=== PATIENT | female | born 1965 | race Caucasian/White ===

== ENCOUNTER 2016-04-25 13:35 | Emergency (ER) | payer BC ==
[~2016-04-25] VITALS: Ht 172.7 cm; Wt 91.0 kg
[2016-04-25 13:46] VITALS: TEMP 36.9; Ht 172.7 cm; Wt 91.0 kg
[2016-04-25] MEDS ORDERED: DiphenhydrAMINE HCL 50 MG/ML VIAL IV STA (14:17)
[2016-04-25] MEDS ORDERED: SODIUM CHLORIDE 0.9% 1000ML 2,000 ML IV STA (14:17)
[2016-04-25] MEDS ORDERED: PROCHLORPERAZINE 5 MG/ML 2 ML VIAL IV STA (14:17)
--- NOTE | 2016-04-25 14:31 | EMERGENCY ROOM VISIT NOTE ---
History Report prepared by Jakob: Michael Lyons Under the Supervision of: Dr. Chano Meyers M.D. First contact with patient: 14:14 Chief Complaint: DEHYDRATION Stated Complaint: LIKELY DEHYDRATION AFTER GI ILLNESS FRI Nursing Triage Summary: Triage Note: Pt reports since nausea, vomitting, diarrhea. pt reports headache. History of Present Illness The patient is a 50 year old female who presents to the Emergency Room with complaints of constant dehydration beginning two days prior to arrival. She currently rates her discomfort as a 7/10 in severity. The patient associates a headache, diarrhea, neck stiffness, and decreased appetite with today's symptoms. She states she had the stomach bug three days ago with nausea, vomiting, and diarrhea. The patient notes the nausea and vomiting resolved but the diarrhea has persisted. She states she has not been eating or drinking well the past few days. The patient notes she has a history of migraines, but her medication did not relieve her headache. She states this headache feels different than her typical migraines. The patient notes she takes medication for her blood pressure, as well. Pt denies LOC, fevers, chills, diaphoresis, visual changes, chest pain, breathing difficulties, nausea, vomiting, abdominal pain, back pain, melena, hematochezia, urinary symptoms, numbness, weakness, lymphadenopathy, rash, or other complaints. 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 Review of Systems See HPI for pertinent positives and negatives. A total of ten systems were reviewed and were otherwise negative. Past Medical & Surgical Medical Problems: (1) Bronchitis (2) Hypertension (3) Pneumonia Surgical Problems: (1) S/P section Family History Cancer Diabetes mellitus Gallbladder disease Heart disease Hypertension Social History Smoking Status: Never Smoker Alcohol Use: occasionally Marital Status: Housing Status: lives with family Occupation Status: retired Current/Historical Medications Scheduled Escitalopram Oxalate (Lexapro), 5 MG PO DAILY Ranitidine (Zantac), 1 TAB PO BID Sumatriptan Succinate (Imitrex), 50 MG PO PRN Miscellaneous Medications Ascorbic Acid (Vitamin C Cr) Lisinopril (Prinivil), 5 MG PO Magnesium Oxide (Magnesium Oxide) Naproxen (Aleve), 220 MG PO Topiramate (Topiramate) Allergies Coded Allergies: BEE STING (Verified Allergy, Unknown, 04/25/16) Physical Exam Vital Signs Date Time Temp Pulse Resp B/P Pulse Ox O2 Delivery O2 Flow Rate FiO2 04/25/16 19:13 57 18 133/87 99 Room Air 04/25/16 18:11 76 17 126/80 98 Room Air 04/25/16 15:39 49 16 125/76 99 Room Air 04/25/16 13:46 36.9 82 18 139/99 97 Room Air Physical Exam GENERAL: Awake, alert, tired-appearing, no distress HENT: Normocephalic, atraumatic. Dry mucous membranes. EYES: PERRL. EOMI. Normal conjunctiva. Sclera non-icteric. NECK: Supple. No nuchal rigidity. FROM. No JVD or bruit. RESPIRATORY: CTA CARDIAC: RRR. No murmur. ABDOMEN: Soft, non distended. No tenderness to palpation. No rebound or guarding. No masses. RECTAL: Deferred. MUSCULOSKELETAL: Unremarkable. No edema. No discoloration. Gross motor strength symmetric. NEURO: Cranial nerves 2-12 grossly intact. Normal sensorium. No sensory or motor deficits noted. Speech normal. No pronator drift. SKIN: Mild tenting. No rash or jaundice noted. LYMPH: No adenopathy. Medical Decision & Procedures ER Provider Diagnostic Interpretation: CT: Radiology results as stated below per my review and radiologist interpretation CT SCAN OF THE BRAIN WITHOUT IV CONTRAST CLINICAL HISTORY: Headache. COMPARISON STUDY: MRI of the brain dated 05/29/2008. TECHNIQUE: Unenhanced axial CT scan of the brain is performed from the vertex to the skull base. Automated dose control exposure was utilized. CT DOSE: 537.48 mGy.cm FINDINGS: Brain parenchyma: The brain parenchyma is normal in appearance. There is no hemorrhage, mass effect, or evidence of acute territorial ischemia by CT criteria. Mcdonald-white matter is preserved. No extra-axial fluid collection is seen. Ventricles, sulci, cisterns: Normal in configuration. Intracranial vasculature: The visualized intracranial vasculature at the skull base is normal in appearance. Calvarium: Unremarkable. Sinuses and mastoids: The visualized paranasal sinuses are clear. The mastoid air cells are well pneumatized. Orbits: The bony orbits are grossly intact. IMPRESSION: No acute intracranial abnormality. Electronically signed by: Sanjay Martinez M.D. 04/25/2016 5:34 PM Laboratory Results 04/25/16 14:45 Red Blood Count 4.72, Mean Corpuscular Volume 89.0, Mean Corpuscular Hemoglobin 30.5, Mean Corpuscular Hemoglobin Concent 34.3, Mean Platelet Volume 9.9, Neutrophils (%) (Auto) 56.5, Lymphocytes (%) (Auto) 31.1, Monocytes (%) (Auto) 11.5, Eosinophils (%) (Auto) 0.7, Basophils (%) (Auto) 0.2, Neutrophils # (Auto ) 2.51, Lymphocytes # (Auto) 1.38, Monocytes # (Auto) 0.51, Eosinophils # (Auto ) 0.03, Basophils # (Auto) 0.01 04/25/16 14:45 Test 04/25/16 14:45 White Blood Count 4.44 K/uL (4.8-10.8) Red Blood Count 4.72 M/uL (4.2-5.4) Hemoglobin 14.4 g/dL (12.0-16.0) Hematocrit 42.0 % (37-47) Mean Corpuscular Volume 89.0 fL (80-100) Mean Corpuscular Hemoglobin 30.5 pg (25-34) Mean Corpuscular Hemoglobin Concent 34.3 g/dl (32-36) Platelet Count 246 K/uL (130-400) Mean Platelet Volume 9.9 fL (7.4-10.4) Neutrophils (%) (Auto) 56.5 % Lymphocytes (%) (Auto) 31.1 % Monocytes (%) (Auto) 11.5 % Eosinophils (%) (Auto) 0.7 % Basophils (%) (Auto) 0.2 % Neutrophils # (Auto) 2.51 K/uL (1.4-6.5) Lymphocytes # (Auto) 1.38 K/uL (1.2-3.4) Monocytes # (Auto) 0.51 K/uL (0.11-0.59) Eosinophils # (Auto) 0.03 K/uL (0-0.5) Basophils # (Auto) 0.01 K/uL (0-0.2) RDW Standard Deviation 42.4 fL (36.4-46.3) RDW Coefficient of Variation 13.0 % (11.5-14.5) Immature Granulocyte % (Auto) 0.0 % Immature Granulocyte # (Auto) 0.00 K/uL (0.00-0.02) Urine Color YELLOW Urine Appearance CLEAR (CLEAR) Urine pH 7.0 (4.5-7.5) Urine Specific [place] 1.016 (1.000-1.030) Urine Protein NEG (NEG) Urine Glucose (UA) NEG (NEG) Urine Ketones NEG (NEG) Urine Occult Blood NEG (NEG) Urine Nitrite NEG (NEG) Urine Bilirubin NEG (NEG) Urine Urobilinogen NEG (NEG) Urine Leukocyte Esterase NEG (NEG) Urine Test NEG (NEG) Anion Gap 10.0 mmol/L (3-11) Est Creatinine Clear Calc Drug Dose 98.0 ml/min Estimated GFR () 98.2 Estimated GFR (Non- 84.7 BUN/Creatinine Ratio 18.5 (10-20) Calcium Level 8.2 mg/dl (8.5-10.1) Magnesium Level 2.1 mg/dl (1.8-2.4) Total Bilirubin 0.3 mg/dl (0.2-1) Direct Bilirubin < 0.1 mg/dl (0-0.2) Aspartate Amino Transf (AST/SGOT) 31 U/L (15-37) Alanine Aminotransferase (ALT/SGPT) 37 U/L (12-78) Alkaline Phosphatase 79 U/L (45-117) Total Protein 7.2 gm/dl (6.4-8.2) Albumin 3.6 gm/dl (3.4-5.0) Lipase 158 U/L (73-393) Laboratory results reviewed by me Medications Administered Medications (Trade) Dose Ordered Sig/Juan Manuel Route Start Time Stop Time Status Last Admin Dose Admin Sodium Chloride (Nss 1000ml) 2,000 ml @ 999 mls/hr Q2H1M STAT IV 04/25/16 14:17 04/25/16 16:17 DC 04/25/16 14:44 999 MLS/HR Prochlorperazine Edisylate (Compazine Inj) 10 mg NOW STAT IV 04/25/16 14:17 04/25/16 14:21 DC 04/25/16 14:44 10 MG Diphenhydramine HCl (Benadryl Inj) 12.5 mg NOW STAT IV 04/25/16 14:17 04/25/16 14:21 DC 04/25/16 14:44 12.5 MG Ketorolac Tromethamine (Toradol Inj) 30 mg NOW STAT IV 04/25/16 15:26 04/25/16 15:28 DC 04/25/16 15:37 30 MG ED Course 1415: The patient was evaluated in room A4B. A complete history and physical exam was performed. 1417: Ordered Benadryl Inj 12.5 mg IV, Compazine Inj 10 mg IV, Sodium Chloride 2 ,000 ml @ 999 mls/hr IV. 1526: Ordered Toradol Inj 30 mg IV. 1528: Reevaluated the patient at this time, and she is feeling a little better. However, she has only received a quarter of her fluid currently. 1700: Reevaluated the patient at this time, and her headache is basically gone. She notes she still has some discomfort, when she is moving her head around. 1818: Reevaluated the patient at this time, and she is feeling better. The patient is getting oral fluids. 1908: I reevaluated the patient, and she is feeling much better. She would like to go home. Discussed results and discharge instructions: She verbalized understanding and agreement. The patient is ready for discharge. Medical Decision Triage Nursing notes reviewed. The patient's presentation and history were concerning for nausea, vomiting, diarrhea, and headache. Etiologies such as gastroenteritis, food borne illness, infections, obstruction , pancreatitis, appendicitis, diverticulitis, inflammatory bowel disease, GI bleed, biliary pathology, toxicologic, dehydration, meningitis, sinusitis, migraine headache, as well as others were entertained. The patient was evaluated. She had some mild dry mucous membranes and tenting of the skin. She notes very poor oral intake over the last few days since her vomiting and diarrhea started. She had an IV established. She had blood work obtained. She was given 2 L of normal saline, Compazine, and Benadryl. She was feeling somewhat better with this but noted her headache was still bothering her. She was given IV Toradol. The patient had an unremarkable CBC except for mild leukopenia which would support a viral syndrome. Patient had a negative chemistry panel, magnesium level, LFTs, lipase and urinalysis. On reassessment the patient was doing well. She noted some fullness in her frontal sinuses as well as concerned that this may be causing her headache. Her headache was resolved unless she would move around and then it was only minimal. CT imaging did not reveal any significant abnormalities. On reassessment she was doing well. She was given oral fluids and crackers. She was able to keep this down. She noted that her anorexia had resolved. The patient has a long history of migraine headaches although did not this did feel somewhat different. I suspect she developed the vomiting and diarrhea and then that triggered this headache-like syndrome. She does not have any meningeal findings, leukocytosis, or fever. Negative jolt accentuation. I discussed conservative management with the patient. I did ask her to return if she worsens in any way. By the evaluation outlined above other emergent etiologies such as those listed in the differential, as well as others, were deemed relatively unlikely. The patient was informed about the findings as listed above. All questions were answered and she was pleased with the treatment. Return instructions were outlined and the patient was discharged in stable condition. The patient was referred to her PCP for follow-up this week for a recheck of the current condition. The chart was completed utilizing [employer] Speech voice recognition software. Grammatical errors, random word insertions, pronoun errors, and incomplete sentences are an occasional consequence of this system due to software limitations, ambient noise, and hardware issues. Any formal questions or concerns about the content, text, or information contained within the body of this dictation should be directly addressed to the physician for clarification. Impression Primary Impression: Nausea Additional Impressions: Headache, Dehydration Scribe Attestation The scribe's documentation has been prepared under my direction and personally reviewed by me in its entirety. I confirm that the note above accurately reflects all work, treatment, procedures, and medical decision making performed by me. Departure Information Dispostion Home / Self-Care Referrals Linda Casillas D.O. (PCP) Forms HOME CARE DOCUMENTATION FORM, IMPORTANT VISIT INFORMATION, WORK / SCHOOL INSTRUCTIONS Patient Instructions A Signature Page, [facility] Additional Instructions DO NOT drive, drink alcohol, operate machinery, or perform dangerous activities today. You were given medications in the ER that can affect your ability to safely function or operate a vehicle. Rest today in a quiet, peaceful, dark environment and get a full 8-10 hrs of sleep tonight. Avoid loud noises, smoke/smoking, alcohol, bright lights, stress, or physical exertion today to minimize the chance the headache may return. Continue current medications. Use the Zofran as needed for nausea. Acetaminophen(Tylenol) may be used for fever or pain. Use 1000mg every six hours as needed. Avoid using more than 4000mg in a 24 hour period. Return to the ER for passing out, worsening or persistent headache, vision problems, neck stiffness/pain, fevers, vomiting, worsening of your condition, or as needed. Follow up with your primary physician in one to 2 days for a recheck of your current condition.
[2016-04-25] MEDS ORDERED: LISI-729 PO (14:53)
[2016-04-25] MEDS ORDERED: SUMA50TA15 PO (14:53)
[2016-04-25] MEDS ORDERED: TOPI15CA7 (14:53)
[2016-04-25] MEDS ORDERED: NAPR1TAB9 PO (14:53)
[2016-04-25] MEDS ORDERED: ASCO500C4 PO (14:53)
[2016-04-25] MEDS ORDERED: ESCI1TAB6 PO (14:53)
[2016-04-25] MEDS ORDERED: MAGN250T12 PO (14:53)
[2016-04-25] MEDS ORDERED: ZNTT/150 PO (14:53)
[2016-04-25 14:57] LABS: BASO % 0.2 %; BASO ABS # 0.01 K/uL (0-0.2); COMPLETE YES; EOS % 0.7 %; LYMPH % 31.1 %; LYMPH ABS # 1.38 K/uL (1.2-3.4); MEAN CORPUSCULAR HEMOGLOBIN 30.5 pg (25-34); MEAN CORPUSCULAR HGB CONC 34.3 g/dl (32-36); MEAN PLATELET VOLUME 9.9 fL (7.4-10.4); MONO % 11.5 %; NEUT % 56.5 %; PLATELET COUNT 246 K/uL (130-400); RED BLOOD COUNT 4.72 M/uL (4.2-5.4); WHITE BLOOD COUNT 4.44 K/uL (4.8-10.8)
[2016-04-25 15:07] LABS: URINE APPEARANCE CLEAR (CLEAR); URINE BILIRUBIN NEG (NEG); URINE COLOR YELLOW; URINE NITRITE NEG (NEG); URINE SPECIFIC GRAVITY 1.016 (1.000-1.030); UROBILINOGEN NEG (NEG)
[2016-04-25 15:11] LABS: MANUAL MICROSCOPIC REQUIRED? NO; REVIEW REQ? NO
[2016-04-25 15:15] LABS: ALT/SGPT 37 U/L (12-78); AST/SGOT 31 U/L (15-37); BLOOD UREA NITROGEN 15 mg/dl (7-18); BUN/CREATININE RATIO 18.5 (10-20); CALCIUM 8.2 mg/dl (8.5-10.1); CARBON DIOXIDE 25 mmol/L (21-32); CHLORIDE 106 mmol/L (98-107); CREATININE 0.81 mg/dl (0.60-1.20); GLUCOSE 95 mg/dl (70-99); MAGNESIUM 2.1 mg/dl (1.8-2.4); POTASSIUM 3.4 mmol/L (3.5-5.1); SODIUM 141 mmol/L (136-145)
[2016-04-25 15:16] LABS: ALKALINE PHOSPHATASE 79 U/L (45-117)
[2016-04-25] MEDS ORDERED: KETOROLAC TROMETHAMINE 30 MG/ML VIAL IV STA (15:26)
--- NOTE | 2016-04-25 17:36 | DIAGNOSTIC IMAGING REPORT ---
CT SCAN OF THE BRAIN WITHOUT IV CONTRAST CLINICAL HISTORY: Headache. COMPARISON STUDY: MRI of the brain dated 05/29/2008. TECHNIQUE: Unenhanced axial CT scan of the brain is performed from the vertex to the skull base. Automated dose control exposure was utilized. CT DOSE: 537.48 mGy.cm FINDINGS: Brain parenchyma: The brain parenchyma is normal in appearance. There is no hemorrhage, mass effect, or evidence of acute territorial ischemia by CT criteria. Mcdonald-white matter is preserved. No extra-axial fluid collection is seen. Ventricles, sulci, cisterns: Normal in configuration. Intracranial vasculature: The visualized intracranial vasculature at the skull base is normal in appearance. Calvarium: Unremarkable. Sinuses and mastoids: The visualized paranasal sinuses are clear. The mastoid air cells are well pneumatized. Orbits: The bony orbits are grossly intact. IMPRESSION: No acute intracranial abnormality. Electronically signed by: Sanjay Martinez M.D. 04/25/2016 5:34 PM
[2016-04-25 19:13] VITALS: BP 133/87; PULSE 57; O2SAT 99
[2016-06-15] MEDS ORDERED: FLUC150T54 PO (00:49)
== END 2016-04-25 19:18 | disposition home or self-care (01) ==
LOC: C.EDB 13:38 → C.EDA 19:18
DX: R11.0 Nausea (principal); R51 Headache; E86.0 Dehydration; I10 Essential (primary) hypertension; Z80.9 Family history of malignant neoplasm, unspecified; Z83.3 Family history of diabetes mellitus; Z82.49 Family history of ischemic heart disease and other diseases of the circulatory system; Z79.899 Other long term (current) drug therapy

== ENCOUNTER 2016-06-14 12:29 | Emergency (ER) | payer BC ==
[~2016-06-14] VITALS: Ht 172.7 cm; Wt 94.3 kg
[~2016-06-14 12:29] MED LIST changes: -ESCI1TAB10 PO; -FLUC150T54 PO; -IPRASOL4 INH; -LEVO1TAB33 PO; -METH4PAK PO; -MISCCAP80 PO; -TOPI25TA99 PO
[2016-06-14 12:31] VITALS: TEMP 36.6; Ht 172.7 cm; Wt 94.3 kg
[2016-06-14] MEDS ORDERED: ALBUT/IPRATROP 3MG/0.5MG NEB 3 ML VIAL INH STA (13:18)
[2016-06-14] MEDS ORDERED: METHYLPREDNISOLONE 125 MG VIAL IV STA (13:18)
--- NOTE | 2016-06-14 13:27 | EMERGENCY ROOM VISIT NOTE ---
History First contact with patient: 13:08 Chief Complaint: COUGH Stated Complaint: WHEEZING, WAITING ON CXR Nursing Triage Summary: Pt states she needs a neb treatment, has been taking them at home 4 x a day for 2 weeks and they're not working. States she had an xray done today. Has been on 4 antibiotics and prednisone is getting worse. Cough, productive. History of Present Illness The patient is a 50 year old female who presents to the Emergency Room via private vehicle with complaints of "wheezing, waiting on chest x-ray"The patient states that she began with a broken tooth in a root canal on May 09 given a Z-Emmett at that time. She notes that 2 weeks later she went to see an neonatal doctor who deconstruct the tooth because it was in bad repair and states that she was prescribed amoxicillin. She states that she then developed an infection in the head and chest and then went to be [facility] clinic and was prescribed a nebulizer treatment Augmentin. She has been doing a nebulizer 3-4 times daily. She also has been using Nasonex and Mucinex. She notes at the infection seems be out of the head but is now settled in her chest. She was to nebulizers at home for half an hour and feels good and then develops rales and wheezing in the chest. She notes that this past Tuesday she went to her family doctor negative for Levaquin and a prescription for 6 days of prednisone as he is typically work for her. She notes that she finished prednisone yesterday and more often as Levaquin. She notes that she's been sleeping a lot and has been wheezing quite a bit. She went to call her family doctor today who was not in and the doctor that office told her to go get a chest x-ray which didn't 11 AM and pulse. And then was sent here because it was a 2 hour weight at the [facility]. She also states that she decided to come in here because she wanted to breathe. She notes she is not used nebulizer prednisone today. She does have a history of pneumonia. She is unsure if she's had fevers or chills. She denies any chest pain but notes tightness. She denies a history of asthma. She's never had this before. She notes her sputum is productive with green and yellow sputum. She also notes vaginal discharge that she has had before when she takes multiple antibiotics and usually gets Diflucan for treatment. She declined pelvic exam. Review of Systems A complete 10-point Review of Systems was discussed with the patient, with pertinent positives and negatives listed in the History of Present Illness. All remaining Review of Systems questions can be considered negative unless otherwise specified. Past Medical/Surgical History Medical Problems: (1) Bronchitis (2) Hypertension (3) Pneumonia Surgical Problems: (1) S/P section Family History Cancer Diabetes mellitus Gallbladder disease Heart disease Hypertension Social History Smoking Status: Former Smoker Alcohol Use: occasionally Marital Status: Housing Status: lives with family Occupation Status: retired Current/Historical Medications Scheduled Ascorbic Acid (Vitamin C Cr), 1 TAB PO DAILY Escitalopram Oxalate (Lexapro), 20 MG PO DAILY Ipratropium-Albuterol (Duoneb), 1 TREATMENT INH QID Levofloxacin (Levaquin), 500 MG PO DAILY Lisinopril (Prinivil), 5 MG PO DAILY Magnesium Oxide (Magnesium Oxide), 1 TAB PO DAILY Methylprednisolone (Medrol Dosepak), 0 PO DAILY Naproxen (Aleve), 220 MG PO DAILY Probiotic Product (Probiotic), 1 CAP PO DAILY Ranitidine (Zantac), 1 TAB PO BID Sumatriptan Succinate (Imitrex), 50 MG PO PRN Topiramate (Topamax ), 25 MG PO BID Allergies Coded Allergies: BEE STING (Verified Allergy, Unknown, 06/14/16) Physical Exam Vital Signs Date Time Temp Pulse Resp B/P Pulse Ox O2 Delivery O2 Flow Rate FiO2 06/14/16 16:15 83 22 145/82 98 06/14/16 14:55 59 16 97 Room Air 06/14/16 14:38 61 18 121/77 100 Room Air 06/14/16 13:57 54 06/14/16 13:50 98 Room Air 06/14/16 12:39 100 Room Air 06/14/16 12:31 36.6 62 20 134/67 100 Room Air Physical Exam VITAL SIGNS - Vital signs and nursing notes were reviewed. Afebrile, normotensive, non-tachycardic and is saturating well on room air 100%. GENERAL -50-year-old female appearing her stated age who is in no acute distress. Communicates well with provider and answers questions appropriately. SKIN - Without rashes. No petechial rashes. HEAD - NC/AT. EYES - PERRL with EOMI bilaterally. Sclera anicteric. Palpebral conjunctiva pink and moist with no injection noted. EARS - No deformities of external structures noted on gross examination bilaterally. No pain elicited with palpation of the tragus bilaterally. External auditory canals without discharge or otorrhea. Tympanic membranes pearly tubbs without retraction or bulging. No fluid or purulent material visualized behind the TM. Handle of malleus, umbo, cone of light, pars tensa/ flaccid all easily visualized. NOSE - Midline and without cyanosis. No epistaxis or purulent drainage noted. Septum midline without deviation or septal hematoma noted. MOUTH/OROPHARYNX - Without perioral cyanosis. Buccal mucosa pink and moist and without leukoplakia. Tongue midline with equal elevation of palate bilaterally. No tonsillar hypertrophy, erythema, or exudates noted. Fair dentition noted. NECK - Neck with FROM. Supple to palpation. No lymphadenopathy noted. No nuchal rigidity. LUNGS - Chest wall symmetric without accessory muscle use, intercostals retractions, or central cyanosis. DIffuse wheezing noted throughout the lung bennett bilaterally. CARDIAC - RRR with S1/S2. No murmur, rubs, or gallops appreciated. ABDOMEN - Abdominal contour without pulsations or visible masses. No tenderness , palpable masses, hepatosplenomegaly, or ascites noted. EXTREMITIES - No clubbing or peripheral cyanosis. No pretibial edema present. +5 /5 strength noted in UE/LE bilaterally. NEUROLOGIC - Cranial nerves II through XII grossly intact. Sensory intact to light touch throughout. PSYCH - A&Ox3 and cooperates fully with examiner. Pt is very pleasant and interacts well with examiner. Medical Decision & Procedures ER Provider Diagnostic Interpretation: CHEST 2 VIEWS ROUTINE CLINICAL HISTORY: Cough. Evaluate for pneumonia. COMPARISON STUDY: Chest radiograph May 01, 2012. FINDINGS: Lung volumes are normal. Lungs are clear. There is no pneumothorax or pleural effusion. Cardiac size is normal. Mediastinal contours are normal. There is no evidence of pulmonary edema. IMPRESSION: No acute cardiopulmonary findings. Electronically signed by: Ruslan Thurman M.D. 06/14/2016 12:04 PM Dictated Date/Time: 06/14/2016 12:03 PM Laboratory Results 06/14/16 13:35 Red Blood Count 4.82, Mean Corpuscular Volume 89.0, Mean Corpuscular Hemoglobin 30.5, Mean Corpuscular Hemoglobin Concent 34.3, Mean Platelet Volume 10.1, Neutrophils (%) (Auto) 55.8, Lymphocytes (%) (Auto) 35.9, Monocytes (%) (Auto) 6.0, Eosinophils (%) (Auto) 1.8, Basophils (%) (Auto) 0.2, Neutrophils # (Auto) 6.88, Lymphocytes # (Auto) 4.43, Monocytes # (Auto) 0.74, Eosinophils # (Auto) 0.22, Basophils # (Auto) 0.03 06/14/16 13:35 Test 06/14/16 13:35 06/14/16 15:37 White Blood Count 12.34 K/uL (4.8-10.8) Red Blood Count 4.82 M/uL (4.2-5.4) Hemoglobin 14.7 g/dL (12.0-16.0) Hematocrit 42.9 % (37-47) Mean Corpuscular Volume 89.0 fL (80-100) Mean Corpuscular Hemoglobin 30.5 pg (25-34) Mean Corpuscular Hemoglobin Concent 34.3 g/dl (32-36) Platelet Count 275 K/uL (130-400) Mean Platelet Volume 10.1 fL (7.4-10.4) Neutrophils (%) (Auto) 55.8 % Lymphocytes (%) (Auto) 35.9 % Monocytes (%) (Auto) 6.0 % Eosinophils (%) (Auto) 1.8 % Basophils (%) (Auto) 0.2 % Neutrophils # (Auto) 6.88 K/uL (1.4-6.5) Lymphocytes # (Auto) 4.43 K/uL (1.2-3.4) Monocytes # (Auto) 0.74 K/uL (0.11-0.59) Eosinophils # (Auto) 0.22 K/uL (0-0.5) Basophils # (Auto) 0.03 K/uL (0-0.2) RDW Standard Deviation 43.3 fL (36.4-46.3) RDW Coefficient of Variation 13.4 % (11.5-14.5) Immature Granulocyte % (Auto) 0.3 % Immature Granulocyte # (Auto) 0.04 K/uL (0.00-0.02) Anion Gap 11.0 mmol/L (3-11) Est Creatinine Clear Calc Drug Dose 97.4 ml/min Estimated GFR () 95.3 Estimated GFR (Non- 82.2 BUN/Creatinine Ratio 25.1 (10-20) Calcium Level 8.7 mg/dl (8.5-10.1) Magnesium Level 2.2 mg/dl (1.8-2.4) Total Bilirubin 0.3 mg/dl (0.2-1) Aspartate Amino Transf (AST/SGOT) 14 U/L (15-37) Alanine Aminotransferase (ALT/SGPT) 23 U/L (12-78) Alkaline Phosphatase 76 U/L (45-117) Total Protein 7.9 gm/dl (6.4-8.2) Albumin 4.0 gm/dl (3.4-5.0) Globulin 3.9 gm/dl (2.5-4.0) Albumin/Globulin Ratio 1.0 (0.9-2) Bedside Troponin I 0.000 ng/ml (0-0.045) Medications Administered Medications (Trade) Dose Ordered Sig/Juan Manuel Route Start Time Stop Time Status Last Admin Dose Admin Methylprednisolone Sodium Succinate (Solu-Medrol IV) 125 mg NOW STAT IV 06/14/16 13:18 06/14/16 13:20 DC 06/14/16 13:18 125 MG Albuterol/ Ipratropium (Duoneb) 12 ml ONE STAT INH 06/14/16 13:18 06/14/16 13:20 DC 06/14/16 13:18 12 ML Medical Decision Patient was seen and evaluated as above. After obtaining a thorough history and physical examination IV access was initiated, and the above workup was initiated. She was given an hour-long DuoNeb treatment as well as 125 mg of Solu-Medrol and she was noted to have bilateral wheezing. She was saturating well on room air. CBC reveals slight leukocytosis at 12.34, no anemia, BUN was slightly high at 21, AST was low at 14. No evidence of significant slight abnormality, liver or kidney failure. Troponins were negative 2. EKG revealed sinus bradycardia, rate of 54 bpm, no ectopy or ischemic changes noted. The patient was reevaluated any times throughout her stay, and after the breathing treatment did not have any relief then began to cough and expelled mucus. She then sounded much better upon auscultation. There was decreased wheezing. Her air exchange was well with good oxygenation. She will be prescribed a Medrol Dosepak, as well as a Diflucan tablet for potential yeast infection. She notes that she has experienced this discharge after being on medications before and declines pelvic exam. The patient appears to be experiencing an asthma exacerbation. I do not suspect any underlying cardiac or emergent lung causes. Patient was offered another breathing treatment but declined. She'll be discharged with a Medrol Dosepak and Diflucan. She is instructed to follow-up with her family doctor by calling them first thing tomorrow morning. She was educated upon worrisome symptoms in which to return, had questions answered prior to discharge and was discharged home in good condition. In evaluation treatment of this patient following differential diagnoses were entertained: [place], PE, asthma, acute respiratory distress syndrome, bronchitis, pneumonia, among others. I believe the patient is experiencing asthmatic bronchitis. She is currently taking Levaquin, and just finished a steroid. I believe it is reasonable to allow her to begin a longer tapered steroid dose and give her Diflucan for her suspected yeast infection. This is a one-time dose, therefore the QT prolongation risk I do not feel is as large. Impression Primary Impression: Cough Additional Impression: Asthmatic bronchitis Departure Information Dispostion Home / Self-Care Condition GOOD Prescriptions Fluconazole (DIFLUCAN) 150 Mg Tab 150 MG PO DAILY for 1 Day, #1 TAB Prov: Abdi Frazier PA-C 06/15/16 Methylprednisolone (MEDROL DOSEPAK) 4 Mg Emmett 0 PO DAILY, #1 PKT Prov: Abdi Frazier PA-C 06/14/16 Referrals Linda Casillas D.O. (PCP) Patient Instructions My [facility] Additional Instructions You were seen in the emergency department for a cough and wheezing. You've been prescribed a Medrol Dosepak. Please continue medication you were prescribed. Please be careful and do not lift any weights while taking the Medrol Dosepak and the Levaquin. Taking these together can increase her risk of tendon rupture. Please call your family doctor first thing tomorrow morning to schedule follow- up. Please return to the emergency department with any worsening of her symptoms, trouble breathing, worsening cough, fevers, chills or any new/concerning symptoms from your standpoint Problem Qualifiers
[2016-06-14 13:50] VITALS: O2SAT 98
[2016-06-14 13:51] LABS: BASO % 0.2 %; BASO ABS # 0.03 K/uL (0-0.2); COMPLETE YES; EOS % 1.8 %; HEMATOCRIT 42.9 % (37-47); IG% 0.3 %; LYMPH % 35.9 %; LYMPH ABS # 4.43 K/uL (1.2-3.4); MEAN CORPUSCULAR HEMOGLOBIN 30.5 pg (25-34); MEAN CORPUSCULAR HGB CONC 34.3 g/dl (32-36); MEAN PLATELET VOLUME 10.1 fL (7.4-10.4); NEUT % 55.8 %; PLATELET COUNT 275 K/uL (130-400); RED BLOOD COUNT 4.82 M/uL (4.2-5.4); WHITE BLOOD COUNT 12.34 K/uL (4.8-10.8)
[2016-06-14] MEDS ORDERED: TOPI25TA99 PO (14:10)
[2016-06-14 14:13] LABS: BUN/CREATININE RATIO 25.1 (10-20); CALCIUM 8.7 mg/dl (8.5-10.1); CREATININE 0.83 mg/dl (0.60-1.20); MAGNESIUM 2.2 mg/dl (1.8-2.4); POTASSIUM 3.6 mmol/L (3.5-5.1)
[2016-06-14] MEDS ORDERED: MISCCAP80 PO (14:17)
[2016-06-14] MEDS ORDERED: IPRASOL4 INH (14:17)
[2016-06-14] MEDS ORDERED: LEVO1TAB33 PO (14:17)
[2016-06-14] MEDS ORDERED: ESCI1TAB10 PO (14:17)
[2016-06-14 14:55] VITALS: PULSE 59; O2SAT 97
[2016-06-14] MEDS ORDERED: METH4PAK PO (15:59)
[2016-06-14 16:15] VITALS: BP 145/82; PULSE 83; O2SAT 98
[2016-06-15] MEDS ORDERED: FLUC150T54 PO (00:49)
== END 2016-06-14 16:17 | disposition home or self-care (01) ==
LOC: C.EDB 12:30
DX: R05 Cough (principal); J45.909 Unspecified asthma, uncomplicated; I10 Essential (primary) hypertension; Z87.891 Personal history of nicotine dependence; Z79.899 Other long term (current) drug therapy

== ENCOUNTER → 2016-06-14 | Outpatient (CLI) | payer BC ==
[~2016-06-14] MED LIST: ASCO500C4 PO; ESCI1TAB10 PO; ESCI1TAB6 PO; FLUC150T54 PO; IPRASOL4 INH; LEVO1TAB33 PO; LISI-729 PO; MAGN250T12 PO; METH4PAK PO; MISCCAP80 PO; NAPR1TAB9 PO; SUMA50TA15 PO; TOPI15CA7; TOPI25TA99 PO; ZNTT/150 PO
--- NOTE | 2016-06-14 12:05 | DIAGNOSTIC IMAGING REPORT ---
CHEST 2 VIEWS ROUTINE CLINICAL HISTORY: Cough. Evaluate for pneumonia. COMPARISON STUDY: Chest radiograph May 01, 2012. FINDINGS: Lung volumes are normal. Lungs are clear. There is no pneumothorax or pleural effusion. Cardiac size is normal. Mediastinal contours are normal. There is no evidence of pulmonary edema. IMPRESSION: No acute cardiopulmonary findings. Electronically signed by: Ruslan Thurman M.D. 06/14/2016 12:04 PM Dictated Date/Time: 06/14/2016 12:03 PM
== END | disposition home or self-care (01) ==
LOC: C.RADBBURG 11:33
PROVIDERS: ATTEND Family Medicine
DX: J18.9 Pneumonia, unspecified organism (principal)

== ENCOUNTER → 2016-11-18 | Outpatient (CLI) | payer BC ==
[~2016-11-18] MED LIST changes: +ESCI1TAB10 PO; -ESCI1TAB6 PO; +IPRASOL4 INH; +LEVO1TAB33 PO; +MISCCAP80 PO; -TOPI15CA7; +TOPI25TA99 PO
--- NOTE | 2016-11-18 15:12 | DIAGNOSTIC IMAGING REPORT ---
RIGHT FOOT MIN 3 VIEWS CLINICAL HISTORY: 50 years-old Female presenting with RIGHT FOOT PAIN Right. TECHNIQUE: Frontal, oblique, and lateral views of the right foot were obtained. COMPARISON: None. FINDINGS: No acute fracture or malalignment. Tiny radiopaque foreign body in the soft tissues overlying the posterior calcaneus. Remaining soft tissues within normal limits. IMPRESSION: No acute osseous injury. Findings concerning for tiny radiopaque foreign body in the soft tissues overlying the posterior calcaneus. Correlate clinically for injury. Electronically signed by: Jacoby Giron M.D. 11/18/2016 3:11 PM Dictated Date/Time: 11/18/2016 3:09 PM
--- NOTE | 2016-11-18 15:39 | DIAGNOSTIC IMAGING REPORT ---
RIGHT HIP UNILATERAL MIN 2 VIEWS CLINICAL HISTORY: Right hip pain. COMPARISON: Right hip radiographs December 21, 2015. FINDINGS: Alignment of the right hip is anatomic. There is no fracture or suspicious lesion. Joint space is preserved. There is no evidence for avascular necrosis. IMPRESSION: Unremarkable right hip radiographs. Electronically signed by: Ruslan Thurman M.D. 11/18/2016 3:38 PM Dictated Date/Time: 11/18/2016 3:37 PM
== END | disposition home or self-care (01) ==
LOC: C.RDSM 13:56
PROVIDERS: ATTEND Internal Medicine
DX: M79.671 Pain in right foot (principal)

== ENCOUNTER → 2016-11-29 | Outpatient (CLI) | payer BC ==
--- NOTE | 2016-11-30 13:56 | MAMMOGRAPHY REPORT ---
BILATERAL DIGITAL SCREENING MAMMOGRAM TOMOSYNTHESIS WITH CAD: 11/29/2016 CLINICAL HISTORY: Routine screening. Patient has no complaints. TECHNIQUE: Breast tomosynthesis in addition to standard 2D mammography was performed. Current study was also evaluated with a Computer Aided Detection (CAD) system. COMPARISON: Comparison is made to exams dated: 11/26/2015 mammogram, 11/21/2014 mammogram, 09/24/2013 [facility] mogram, 09/21/2012 mammogram, 07/30/2011 mammogram - [facility], and 07/02/2008. BREAST COMPOSITION: There are scattered areas of fibroglandular density in both breasts. FINDINGS: There are a few scattered benign-appearing microcalcifications in the breasts. No suspicio us mass, architectural distortion or cluster of suspicious microcalcifications is seen. IMPRESSION: ACR BI-RADS CATEGORY 1: NEGATIVE There is no mammographic evidence of malignancy. A 1 year screening mammogram is recommended. The pa tient will receive written notification of the results. Approximately 10% of breast cancers are not detected with mammography. A negative mammographic report should not delay biopsy if a clinically suggestive mass is present. Soheila Campos M.D. ay/:11/29/2016 16:21:08 Core Checker: Sherrell MORAN(R)(M), [facility] letter sent: Normal 1/2 BI-RADS Code: ACR BI-RADS Category 1: Negative
== END | disposition home or self-care (01) ==
LOC: C.MAMM 11:20
PROVIDERS: ATTEND Family Medicine
DX: Z12.31 Encounter for screening mammogram for malignant neoplasm of breast (principal)

== ENCOUNTER → 2017-06-23 | Outpatient (CLI) | payer BC, OTHER ==
[~2017-06-23] MED LIST changes: +RANI150T85 PO; -ZNTT/150 PO
--- NOTE | 2017-06-23 14:28 | DIAGNOSTIC IMAGING REPORT ---
L ANKLE MIN 3 VIEWS CLINICAL HISTORY: Left ankle pain status post trauma COMPARISON: None. DISCUSSION: No fractures or dislocations are visualized. There is an equivocal small joint effusion. IMPRESSION: No fractures or dislocations identified. Possible small joint effusion. Electronically signed by: Jason Thompson M.D. 06/23/2017 2:26 PM Dictated Date/Time: 06/23/2017 2:26 PM
== END | disposition home or self-care (01) ==
LOC: C.RDSM 14:15
PROVIDERS: ATTEND Family Medicine
DX: M25.579 Pain in unspecified ankle and joints of unspecified foot (principal)

== ENCOUNTER → 2017-08-24 | Outpatient (CLI) | payer OTHER ==
--- NOTE | 2017-08-24 13:35 | DIAGNOSTIC IMAGING REPORT ---
L ANKLE MIN 3 VIEWS CLINICAL HISTORY: LEFT ANKLE PAIN COMPARISON: Left ankle radiographs June 23, 2017. FINDINGS: Alignment of the left ankle is anatomic. No fracture or osseous lesion is identified. The talar dome is intact. Joint spaces are preserved. There is a possible tibiotalar joint effusion. IMPRESSION: 1. No osseous abnormality of the left ankle. 2. Possible tibiotalar joint effusion. Electronically signed by: Ruslan Thurman M.D. 08/24/2017 1:34 PM Dictated Date/Time: 08/24/2017 1:30 PM
== END | disposition home or self-care (01) ==
LOC: C.RDSM 13:10
PROVIDERS: ATTEND Physician Assistant
DX: M25.572 Pain in left ankle and joints of left foot (principal)